=== PATIENT | female | born 1990 | race Hispanic/Latino ===

== ENCOUNTER 2018-12-19 17:12 | Emergency (ER) | payer MEDICAID ==
[2018-12-19 17:20] VITALS: BP 143/83
--- NOTE | 2018-12-19 17:20 | Event Note ---
ED Screening Note ED Screening Note: bilateral flank pain x 1 month states that over the weekend has felt worse has N/V/D that began yesterday no urinary sx LNMP: has a nexplanon denies hx of kidney stones PMHx: HTN, hypothyroidism no allergies to meds This initial assessment/diagnostic orders/clinical plan/treatment(s) is/are subject to change based on patients health status, clinical progression and re- assessment by fellow clinical providers in the ED. Further treatment and workup at subsequent clinical providers discretion. Patient/guardian urged not to elope from the ED as their condition may be serious if not clinically assessed and managed. Initial orders include: labs, UA, CT abd/pelvis w/o contrast
[2018-12-19 17:53] LABS: Basophils % (Auto) 0.7 % (0.0-1.8); Eosinophils # (Auto) 0.2 K/mm3 (0.0-0.4); Eosinophils % (Auto) 2.6 % (0.0-4.3); Hematocrit 40.7 % (30.3-42.9); Hemoglobin 13.7 gm/dl (10.1-14.3); Lymphocytes # (Auto) 2.2 K/mm3 (1.2-5.4); Lymphocytes % (Auto) 31.8 % (13.4-35.0); Mean Corpuscular HGB Conc 34 % (30-34); Mean Corpuscular Volume 89 fl (79-97); Monocytes # (Auto) 0.5 K/mm3 (0.0-0.8); Monocytes % (Auto) 6.6 % (0.0-7.3); Platelet Count 251 K/mm3 (140-440); Red Blood Count 4.56 M/mm3 (3.65-5.03); Red Cell Distribution Width 12.8 % (13.2-15.2)
[2018-12-19 18:00] LABS: HCG Qualitative,Urine Negative (Negative)
[2018-12-19 18:04] LABS: Bacteria,Urine 1+ /HPF (Negative); Bilirubin,Urine NEG (Negative); Blood,Urine NEG (Negative); Color,Urine Yellow (Yellow); Mucus,Urine FEW /HPF; Protein,Urine <15 mg/dL mg/dL (Negative)
[2018-12-19 18:12] LABS: Alanine Aminotransferase 16 units/L (7-56); BUN/Creatinine Ratio 14; Blood Urea Nitrogen 10 mg/dL (7-17); Calcium 9.2 mg/dL (8.4-10.2); Hemolysis Index 29
--- NOTE | 2018-12-19 19:08 | Cat Scan Report ---
CT ABDOMEN AND PELVIS WITHOUT CONTRAST INDICATION / CLINICAL INFORMATION: bilateral flank pain. TECHNIQUE: Axial CT images were obtained through the abdomen and pelvis without IV contrast. All CT scans at [facility] location are performed using CT dose reduction for ALARA by means of automated exposure control. COMPARISON: Exam is compared to 04/27/2018 FINDINGS: LOWER CHEST: No significant abnormality. Small hiatal hernia is present. LIVER: No significant abnormality. GALLBLADDER: Previous cholecystectomy BILE DUCTS: No significant abnormality. PANCREAS: No significant abnormality. SPLEEN: No significant abnormality. ADRENALS: No significant abnormality. RIGHT KIDNEY and URETER: No significant abnormality. LEFT KIDNEY and URETER: No significant abnormality. STOMACH and SMALL BOWEL: No significant abnormality. COLON: No significant abnormality. APPENDIX: No significant abnormality. PERITONEUM: No free fluid. No free air. No fluid collection. Small umbilical hernia is present withou t evidence of gastrointestinal contents within the sac. LYMPH NODES: No significant adenopathy. AORTA and ARTERIES: No significant abnormality. IVC and VEINS: No significant abnormality. URINARY BLADDER: No significant abnormality. REPRODUCTIVE ORGANS: No significant abnormality. ADDITIONAL FINDINGS: None. 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 No significant abnormality. Please see comments Signer Name: Kamran Hutchison MD Signed: 12/19/2018 7:03 PM Workstation Name: [email or web address]
[2018-12-19] MEDS ORDERED: BENTYL IM ONE ×2 (20:02→20:05)
[2018-12-19] MEDS ORDERED: TORADOL IM ONE (20:02)
[2018-12-19] MEDS ORDERED: TORADOL ONE (20:04)
--- NOTE | 2018-12-19 20:08 | Emergency Department Report ---
ED Abdominal Pain HPI - General Chief Complaint: Abdominal Pain Stated Complaint: STOMACH PAIN/HEADACHE Time Seen by Provider: 12/19/18 17:18 Source: patient Mode of arrival: Ambulatory Limitations: No Limitations - History of Present Illness Initial Comments: This is a 28-year-old female who presents to ED complaining of intermittent abdominal pain for the past weeks. Patient states the abdominal pain is made to generalized. Patient states that yesterday she began expressing some nausea and 2 episodes of diarrhea. She denies fevers/chills/chest pain/shortness of breath or any other symptoms she denies vaginal discharge, dysuria, pelvic pain. Patient also states that 3 of her children are currently on medication for strep throat and she feels like she may have strep throat because she is having throat pain for the past 2 days. - Related Data Previous Rx's Medication Instructions Recorded Last Taken Type Acetaminophen/Codeine [Tylenol 1 tab PO Q6H PRN #12 tab 04/27/18 Unknown Rx /Codeine # 3 tab] Ibuprofen [Motrin] 600 mg PO Q8H PRN #20 tablet 04/27/18 Unknown Rx Amoxicillin [Amoxicillin TAB] 875 mg PO BID #14 tablet 12/19/18 Unknown Rx Dicyclomine [Bentyl] 20 mg PO BID #20 tablet 12/19/18 Unknown Rx Allergies Allergy/AdvReac Type Severity Reaction Status Date / Time No Known Allergies Allergy Unverified 04/27/18 16:51 ED Review of Systems ROS: Stated complaint: STOMACH PAIN/HEADACHE Other details as noted in HPI Comment: All other systems reviewed and negative ED Past Medical Hx - Past Medical History Previous Medical History?: Yes Hx Hypertension: Yes Additional medical history: hypothyroid - Surgical History Hx Cholecystectomy: Yes Additional Surgical History: x 3 - Social History Smoking Status: Never Smoker Substance Use Type: None - Medications Home Medications: Home Medications Medication Instructions Recorded Confirmed Last Taken Type Acetaminophen/Codeine [Tylenol 1 tab PO Q6H PRN #12 tab 04/27/18 Unknown Rx /Codeine # 3 tab] Ibuprofen [Motrin] 600 mg PO Q8H PRN #20 tablet 04/27/18 Unknown Rx Amoxicillin [Amoxicillin TAB] 875 mg PO BID #14 tablet 12/19/18 Unknown Rx Dicyclomine [Bentyl] 20 mg PO BID #20 tablet 12/19/18 Unknown Rx ED Physical Exam - General Limitations: No Limitations General appearance: alert, in no apparent distress - Head Head exam: Present: atraumatic, normocephalic - Eye Eye exam: Present: normal appearance, PERRL - ENT ENT exam: Present: normal exam, mucous membranes moist - Neck Neck exam: Present: normal inspection - Respiratory Respiratory exam: Present: normal lung sounds bilaterally. Absent: respiratory distress - Cardiovascular Cardiovascular Exam: Present: regular rate, normal rhythm. Absent: systolic murmur, diastolic murmur, rubs, gallop - GI/Abdominal GI/Abdominal exam: Present: soft, normal bowel sounds. Absent: distended, tenderness, guarding, organomegaly, mass, bruit - Extremities Exam Extremities exam: Present: normal inspection, full ROM - Back Exam Back exam: Present: normal inspection - Neurological Exam Neurological exam: Present: alert, oriented X3 - Psychiatric Psychiatric exam: Present: normal affect, normal mood - Skin Skin exam: Present: warm, dry, intact, normal color. Absent: rash ED Course Vital Signs 12/19/18 17:18 Temperature 98.4 F Pulse Rate 68 Respiratory 19 Rate Blood Pressure 143/83 [Left] O2 Sat by Pulse 99 Oximetry ED Medical Decision Making - Lab Data Result diagrams: 12/19/18 17:33 12/19/18 17:33 Laboratory Last Values WBC 7.0 K/mm3 (4.5-11.0) 12/19/18 17:33 RBC 4.56 M/mm3 (3.65-5.03) 12/19/18 17:33 Hgb 13.7 gm/dl (10.1-14.3) 12/19/18 17:33 Hct 40.7 % (30.3-42.9) 12/19/18 17:33 MCV 89 fl (79-97) 12/19/18 17:33 MCH 30 pg (28-32) 12/19/18 17:33 MCHC 34 % (30-34) 12/19/18 17:33 RDW 12.8 % (13.2-15.2) L 12/19/18 17:33 Plt Count 251 K/mm3 (140-440) 12/19/18 17:33 Lymph % (Auto) 31.8 % (13.4-35.0) 12/19/18 17:33 [place] % (Auto) 6.6 % (0.0-7.3) 12/19/18 17:33 Eos % (Auto) 2.6 % (0.0-4.3) 12/19/18 17:33 Baso % (Auto) 0.7 % (0.0-1.8) 12/19/18 17:33 Lymph # 2.2 K/mm3 (1.2-5.4) 12/19/18 17:33 [place] # 0.5 K/mm3 (0.0-0.8) 12/19/18 17:33 Eos # 0.2 K/mm3 (0.0-0.4) 12/19/18 17:33 Baso # 0.0 K/mm3 (0.0-0.1) 12/19/18 17:33 Seg Neutrophils % 58.3 % (40.0-70.0) 12/19/18 17:33 Seg Neutrophils # 4.1 K/mm3 (1.8-7.7) 12/19/18 17:33 Sodium 141 mmol/L (137-145) 12/19/18 17:33 Potassium 4.1 mmol/L (3.6-5.0) 12/19/18 17:33 Chloride 104.7 mmol/L (98-107) 12/19/18 17:33 Carbon Dioxide 23 mmol/L (22-30) 12/19/18 17:33 17 mmol/L 12/19/18 17:33 BUN 10 mg/dL (7-17) 12/19/18 17:33 0.7 mg/dL (0.7-1.2) 12/19/18 17:33 Estimated GFR > 60 ml/min 12/19/18 17:33 14 % 12/19/18 17:33 Glucose 76 mg/dL (65-100) 12/19/18 17:33 Calcium 9.2 mg/dL (8.4-10.2) 12/19/18 17:33 0.30 mg/dL (0.1-1.2) 12/19/18 17:33 AST 19 units/L (5-40) 12/19/18 17:33 ALT 16 units/L (7-56) 12/19/18 17:33 65 units/L (35-129) 12/19/18 17:33 7.5 g/dL (6.3-8.2) 12/19/18 17:33 4.0 g/dL (3.9-5) 12/19/18 17:33 1.1 % 12/19/18 17:33 23 units/L (13-60) 12/19/18 17:33 Yellow (Yellow) 12/19/18 17:41 Slightly-cloudy (Clear) 12/19/18 17:41 6.0 (5.0-7.0) 12/19/18 17:41 Ur Specific [place] 1.019 (1.003-1.030) 12/19/18 17:41 <15 mg/dl mg/dL (Negative) 12/19/18 17:41 Neg mg/dL (Negative) 12/19/18 17:41 Neg mg/dL (Negative) 12/19/18 17:41 Neg (Negative) 12/19/18 17:41 Neg (Negative) 12/19/18 17:41 Ur Reducing Substances Not Reportable 12/19/18 17:41 Neg (Negative) 12/19/18 17:41 Not Reportable 12/19/18 17:41 2.0 mg/dL (<2.0) 12/19/18 17:41 Ur Leukocyte Esterase Neg (Negative) 12/19/18 17:41 1.0 /HPF (0.0-6.0) 12/19/18 17:41 2.0 /HPF (0.0-6.0) 12/19/18 17:41 U Epithel Cells (Auto) 9.0 /HPF (0-13.0) 12/19/18 17:41 1+ /HPF (Negative) 12/19/18 17:41 Few /HPF 12/19/18 17:41 Urine HCG, Qual Negative (Negative) 12/19/18 17:41 - Radiology Data Radiology results: report reviewed, image reviewed CT ABDOMEN AND PELVIS WITHOUT CONTRAST INDICATION / CLINICAL INFORMATION: bilateral flank pain. TECHNIQUE: Axial CT images were obtained through the abdomen and pelvis without IV contrast. All CT scans at this location are performed using CT dose reduction for ALARA by means of automated exposure control. COMPARISON: Exam is compared to 04/27/2018 FINDINGS: LOWER CHEST: No significant abnormality. Small hiatal hernia is present. LIVER: No significant abnormality. GALLBLADDER: Previous cholecystectomy BILE DUCTS: No significant abnormality. PANCREAS: No significant abnormality. SPLEEN: No significant abnormality. ADRENALS: No significant abnormality. RIGHT KIDNEY and URETER: No significant abnormality. LEFT KIDNEY and URETER: No significant abnormality. STOMACH and SMALL BOWEL: No significant abnormality. COLON: No significant abnormality. APPENDIX: No significant abnormality. PERITONEUM: No free fluid. No free air. No fluid collection. Small umbilical hernia is present without evidence of gastrointestinal contents within the sac. LYMPH NODES: No significant adenopathy. AORTA and ARTERIES: No significant abnormality. IVC and VEINS: No significant abnormality. URINARY BLADDER: No significant abnormality. REPRODUCTIVE ORGANS: No significant abnormality. ADDITIONAL FINDINGS: None. 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 No significant abnormality. Please see comments Signer Name: Kamran Hutchison MD Signed: 12/19/2018 7:03 PM Workstation Name: [id number] Transcribed By: WG Dictated By: Kamran Hutchison MD Electronically Authenticated By: Kamran Hutchison MD Signed Date/Time: 12/19/18 190 - Medical Decision Making This is a 28-year-old female who presents with abdominal pain was from gastroenteritis. All labs within normal limits urinalysis negative urine test negative. CT scan shows no abnormalities C reported above. 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 Patient given amoxicillin for treatment strep pharyngitis and she was exposed to children. Vital signs are normal patient is in no acute distress. Critical care attestation.: If time is entered above; I have spent that time in minutes in the direct care of this critically ill patient, excluding procedure time. ED Disposition Clinical Impression: Gastroenteritis Disposition: DC-01 TO HOME OR SELFCARE Is pt being admited?: No Does the pt Need Aspirin: No Condition: Stable Instructions: Abdominal Pain (ED), Food Poisoning (ED), Gastroenteritis (ED) Additional Instructions: Make sure to follow up with the primary care physician as discussed. Take all your medications as you've been prescribed. If you have any worsening symptoms or develop new symptoms please return to ED immediately. Prescriptions: Amoxicillin [Amoxicillin TAB] 875 mg PO BID #14 tablet Dicyclomine [Bentyl] 20 mg PO BID #20 tablet Referrals: MALIA SILVA MD [Primary Care Provider] - 3-5 Days [facility] [Provider Group] - 3-5 Days Forms: Work/School Release Form(ED) Time of Disposition: 20:13
== END 2018-12-19 20:40 | disposition home or self-care (01) ==
LOC: ED 17:12
DX: K52.9 Noninfective gastroenteritis and colitis, unspecified (principal); I10 Essential (primary) hypertension; E03.9 Hypothyroidism, unspecified; Z90.49 Acquired absence of other specified parts of digestive tract; Z79.899 Other long term (current) drug therapy
CPT/HCPCS: 36415; 74176; 80053; 81001; 81025; 83690; 85025; 87116; 87430; 96372; 99284; J0500; J1885